=== PATIENT | male | born 1985 | race Caucasian/White ===

== ENCOUNTER 2019-03-17 20:38 | Emergency (ER) | payer OTHER ==
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
[2019-03-17 21:39] VITALS: BP 136/98; PULSE 102; O2SAT 99
== END 2019-03-17 21:36 | disposition home or self-care (01) ==
LOC: ED 20:38
DX: F19.10 Other psychoactive substance abuse, uncomplicated (principal); Z02.89 Encounter for other administrative examinations
CPT/HCPCS: 99283